=== PATIENT | female | born 2000 | race Two or more races ===

== ENCOUNTER 2021-06-19 21:21 | Observation (INO) | payer SELFPAY ==
[2021-06-19] MEDS ORDERED: IV RINGERS,LACTATED 1000ML 1,000 ML IV SCH (22:30)
[2021-06-19 22:40] LABS: BACTERIA,URINE FEW /HPF (0-FEW); BILIRUBIN,URINE NEGATIVE (NEG); CLARITY,URINE CLEAR; COLOR,URINE COLORLESS; NITRITE,URINE NEGATIVE (NEG); PROTEIN,URINE NEGATIVE (NEG-TRACE); RBC,URINE RARE /HPF (0-2); UROBILINOGEN,URINE 0.2 mg/dL (0.2 mg/dL)
[2021-06-19 22:41] LABS: BARBITURATES NEG (NEG); BENZODIAZEPINES NEG (NEG); CANNABINOIDS NEG (NEG); COCAINE NEG (NEG); METHADONE NEG (NEG); OPIATES NEG (NEG); PHENCYCLIDINE NEG (NEG)
[2021-06-19 22:47] LABS: AMPHETAMINE/METHAMPHETAMINE NEG (NEG)
== END 2021-06-20 01:29 | disposition home or self-care (01) ==
LOC: 3 SO LND 21:21
PROVIDERS: ADMIT Obstetrics & Gynecology; ATTEND Obstetrics & Gynecology
DX: O62.9 Abnormality of forces of labor, unspecified (principal); Z3A.39 39 weeks gestation of pregnancy
CPT/HCPCS: 80307; 81001; 87086; G0378; G0379

== ENCOUNTER 2021-07-10 07:27 | Inpatient (IN) | payer SELFPAY ==
[~2021-07-10] VITALS: Ht 157.5 cm; Wt 74.5 kg
[2021-07-10] MEDS ORDERED: BUTORPHANOL 2 MG/ML VIAL. IVP PRN ×2 (08:45)
[2021-07-10] MEDS ORDERED: OXYTOCIN 30 UNIT/500 ML PREMIX 500 ML IV PRN ×3 (08:45→14:45)
[2021-07-10] MEDS ORDERED: ACETAMINOPHEN 325 MG TABLET. PO PRN ×2 (08:45→14:45)
[2021-07-10] MEDS ORDERED: LIDOCAINE 1% PF 30 ML VIAL. INJ PRN (08:45)
[2021-07-10] MEDS ORDERED: 0.9 % SODIUM CHLORIDE 10 ML DISP.SYRIN. IV PRN ×2 (08:45→14:45)
[2021-07-10] MEDS ORDERED: TERBUTALINE 1 MG/ML VIAL. SQ PRN (08:45)
[2021-07-10] MEDS ORDERED: IV RINGERS,LACTATED 1000ML 1,000 ML IV PRN (08:45)
[2021-07-10 09:43] LABS: BASO # 0.1 x10^3/uL (0.0-0.2); BASO % 1 % (0-3); EOS % 0 % (0-3); HEMATOCRIT 35.5 % (36.0-47.0); HEMOGLOBIN 12.6 g/dL (12.0-15.5); LYMPH % 18 % (24-48); MEAN CORPUSCULAR HEMOGLOBIN 31 pg (25-35); MEAN CORPUSCULAR HGB CONC 36 g/dL (31-37); MEAN CORPUSCULAR VOLUME 88 fL (79-100); MONO # 0.7 x10^3/uL (0.0-1.1); MONO % 6 % (0-9); NEUT # 8.2 x10^3/uL (1.8-7.7); NEUT % 75 % (31-73); PLATELET COUNT 243 x10^3/uL (140-400); RED BLOOD COUNT 4.02 x10^6/uL (3.50-5.40); RED CELL DISTRIBUTION WIDTH 13.9 % (11.5-14.5); WHITE BLOOD COUNT 10.9 x10^3/uL (4.0-11.0)
[2021-07-10 10:30] VITALS: BP 110/70
--- NOTE | 2021-07-10 14:06 | PDOC1 ---
[facility] H&P Date of Admission: Date of Admission: Jul 10, 2021 at 07:27 History of Present Illness: EDC: 07/12/21 LMP: 10/05/20 20y @ 39.5 by L=20 presents to L&D with LOF. She was confirmed ruptured. The pt remained 1 cm so she was started on Pit for augmentation. PMH: Denies PSH: Appy 2014 Meds: PNV All: NKDA OBHx: G1 SH: no tob, no EtOH FH: noncontributory Medications: Meds: Current Medications Medications (Trade) Dose Ordered Sig/Filipe Route PRN Reason Start Time Stop Time Status Last Admin Dose Admin Ringer's Solution 1,000 ml @ 125 mls/hr Q8H PRN IV PER PROTOCOL 07/10/21 08:45 07/10/21 10:03 Butorphanol Tartrate (Stadol) 2 mg PRN Q1HR PRN IVP Severe labor pain 07/10/21 08:45 07/10/21 13:27 Oxytocin 500 ml @ 0 mls/hr CONT PRN IV SEE I/O RECORD 07/10/21 08:45 07/10/21 10:04 Allergies: Coded Allergies: No Known Drug Allergies (Unverified , 07/10/21) Physical Exam: Vital Signs: Vital Signs Date Time Temp Pulse Resp B/P (MAP) Pulse Ox O2 Delivery O2 Flow Rate FiO2 07/10/21 13:27 22 PE: GENERAL: No apparent distress. Alert and oriented. HEENT: Head normocephalic, atraumatic. NECK: Supple LUNGS: Clear to auscultation. HEART: RRR, S1, S2 present, pulses intact ABDOMEN: Soft, positive bowel sounds. EXTREMITIES: No cyanosis or edema. NEUROLOGIC: Normal speech, normal tone PSYCHIATRIC: Normal affect, normal mood. SKIN: No ulceration. FHT: 140's +acels/variable decels/mLTV [place]: 1-2 min SVE: 2-3/75/-3 Labs: Laboratory Tests Test 07/10/21 09:25 07/10/21 09:40 White Blood Count 10.9 x10^3/uL (4.0-11.0) Red Blood Count 4.02 x10^6/uL (3.50-5.40) Hemoglobin 12.6 g/dL (12.0-15.5) Hematocrit 35.5 % (36.0-47.0) L Mean Corpuscular Volume 88 fL (79-100) Mean Corpuscular Hemoglobin 31 pg (25-35) Mean Corpuscular Hemoglobin Concent 36 g/dL (31-37) Red Cell Distribution Width 13.9 % (11.5-14.5) Platelet Count 243 x10^3/uL (140-400) Neutrophils (%) (Auto) 75 % (31-73) H Lymphocytes (%) (Auto) 18 % (24-48) L Monocytes (%) (Auto) 6 % (0-9) Eosinophils (%) (Auto) 0 % (0-3) Basophils (%) (Auto) 1 % (0-3) Neutrophils # (Auto) 8.2 x10^3/uL (1.8-7.7) H Lymphocytes # (Auto) 2.0 x10^3/uL (1.0-4.8) Monocytes # (Auto) 0.7 x10^3/uL (0.0-1.1) Eosinophils # (Auto) 0.0 x10^3/uL (0.0-0.7) Basophils # (Auto) 0.1 x10^3/uL (0.0-0.2) Treponema pallidum Antibody Nonreactive (Nonreactive) SARS-CoV-2 Antigen (Rapid) Negative (NEGATIVE) Laboratory Tests 07/10/21 09:25 Laboratory Tests 07/10/21 09:25 Assessment & Plan: A/P 20y @ 39.4 by L=20 1.) SROM on Pit for augmentation 2.) Chl pos - WINTER neg 02/05/21 3.) Trey NI 4.) TDAP given 04/23/21 5.) Flu vaccine given 02/05/21 6.) Fetus cat I FHT 7.) GBS neg LYLY SCOTT MD Jul 10, 2021 14:06
--- NOTE | 2021-07-10 14:41 | PDOC4 ---
VAGINAL DELIVERY DATE DATE: 07/10/21 TIME: 14:40 TIME Patient delivered a viable male over intact perineum at 1428. Wt 6lb 13.9oz. Apgars 8/9. Placenta delivered spontaneously, intact with 3VC. No lacerations noted. Good hemostasis noted. 20 U of Pit given with IVF. EBL 100cc. WEIGHT Weight [ ] LYLY SCOTT MD Jul 10, 2021 14:41
[2021-07-10] MEDS ORDERED: TDaP (Adacel) per PROTOCOL. MC PRN (14:45)
[2021-07-10] MEDS ORDERED: MAG HYDROX/ALUMINUM HYD/SIMETH 30 ML ORAL.SUSP PO PRN (14:45)
[2021-07-10] MEDS ORDERED: diphenhydrAMINE HCL 25 MG CAPSULE PO PRN (14:45)
[2021-07-10] MEDS ORDERED: HYDROCORTISONE 1% TOPICAL OINTMENT 30GM TUBE. TP PRN (14:45)
[2021-07-10] MEDS ORDERED: SIMETHICONE 80 MG TAB.CHEW PO PRN (14:45)
[2021-07-10] MEDS ORDERED: MAGNESIUM HYDROXIDE 2,400 MG/30 ML ORAL.SUSP. PO PRN (14:45)
[2021-07-10] MEDS ORDERED: ZOLPIDEM 5 MG TABLET. PO PRN (14:45)
[2021-07-10] MEDS ORDERED: MMR per PROTOCOL. MC PRN (14:45)
[2021-07-10] MEDS ORDERED: PHENYLEPH/MINERAL OIL/PETROLAT RECTAL OINTMENT TUBE. RC PRN (14:45)
[2021-07-10] MEDS ORDERED: BENZOCAINE 20% TOPICAL AEROSOL SPRAY 57GM CAN. TP PRN (14:45)
[2021-07-10] MEDS ORDERED: oxyCODONE/APAP 5/325 1 TAB TABLET PO PRN (14:45)
[2021-07-10] MEDS: IBUPROFEN 400 MG TABLET. PO PRN (17:05)
[2021-07-10 17:45] VITALS: BP 117/67
[2021-07-10 18:44] VITALS: BP 133/75
[2021-07-10 20:54] VITALS: BP 110/70
[2021-07-11] VITALS (7 sets, daily range): BP systolic 102–122; BP diastolic 51–73
[2021-07-11] MEDS: IBUPROFEN 400 MG TABLET. PO PRN ×2 (06:04→17:13)
[2021-07-11] MEDS: FERROUS SULFATE 325 MG TABLET. PO SCH ×2 (08:00→16:07)
[2021-07-11 08:22] LABS: HEMATOCRIT 36.2 % (36.0-47.0); HEMOGLOBIN 12.5 g/dL (12.0-15.5); RED BLOOD COUNT 4.05 x10^6/uL (3.50-5.40); WHITE BLOOD COUNT 12.3 x10^3/uL (4.0-11.0)
[2021-07-11] MEDS: PRENATAL MULTIVITAMIN TABLET. PO SCH (10:45)
[2021-07-11] MEDS: DOCUSATE SODIUM 100 MG CAPSULE. PO PRN ×2 (10:45→17:13)
--- NOTE | 2021-07-11 12:02 | PDOC ---
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 Yuriy PO. Voiding. Minimal lochia. Objective: Vital Signs: Vital Signs Date Time Temp Pulse Resp B/P (MAP) Pulse Ox O2 Delivery O2 Flow Rate FiO2 07/10/21 10:30 98.7 79 20 110/70 (83) 98.7 07/10/21 17:45 Room Air Vital Signs Date Time Temp Pulse Resp B/P (MAP) Pulse Ox O2 Delivery O2 Flow Rate FiO2 07/11/21 08:09 98.5 66 16 106/65 (79) Room Air 98.5 Labs: Laboratory Tests Test 07/11/21 08:00 White Blood Count 12.3 x10^3/uL (4.0-11.0) H Red Blood Count 4.05 x10^6/uL (3.50-5.40) Hemoglobin 12.5 g/dL (12.0-15.5) Hematocrit 36.2 % (36.0-47.0) Mean Corpuscular Volume 89 fL (79-100) Mean Corpuscular Hemoglobin 31 pg (25-35) Mean Corpuscular Hemoglobin Concent 35 g/dL (31-37) Red Cell Distribution Width 14.0 % (11.5-14.5) Platelet Count 237 x10^3/uL (140-400) Laboratory Tests 07/11/21 08:00 Laboratory Tests 07/11/21 08:00 Physical Exam: GENERAL: No apparent distress. Alert and oriented. HEENT: Head normocephalic, atraumatic. NECK: Supple LUNGS: Clear to auscultation. HEART: RRR, S1, S2 present, pulses intact ABDOMEN: Soft, positive bowel sounds. EXTREMITIES: No cyanosis or edema. NEUROLOGIC: Normal speech, normal tone PSYCHIATRIC: Normal affect, normal mood. SKIN: No ulceration. FFNT below umb No C/C/E Assessment & Plan: A/P 20y PPD #1 s/p 1.) PP doing well 2.) Chl pos - WINTER neg 02/05/21 3.) Trey NI 4.) TDAP given 04/23/21 5.) Flu vaccine given 02/05/21 6.) Hgb 12.6 -> 12.5 7.) Cont PP LYLY Walker MD Jul 11, 2021 12:02
[2021-07-12 05:58] VITALS: BP 113/75
[2021-07-12] MEDS: PRENATAL MULTIVITAMIN TABLET. PO SCH (09:48)
[2021-07-12] MEDS: IBUPROFEN 400 MG TABLET. PO PRN (09:48)
[2021-07-12] MEDS: DOCUSATE SODIUM 100 MG CAPSULE. PO PRN (09:48)
[2021-07-12 09:49] VITALS: BP 111/71
[2021-07-12] MEDS ORDERED: IBUP-1060 PO (11:24)
[2021-07-12] MEDS ORDERED: DOCU-109 PO (11:24)
--- NOTE | 2021-07-12 11:27 | PDOC ---
ULTIMATE [employer] SCOREBOARD OPERATOR PROGRESS NOTE Date of Service: DATE: 07/12/21 TIME: 11:27 Subjective: Pt with good pain control. Yuriy PO. Voiding. Minimal lochia. Objective: Vital Signs: Vital Signs Date Time Temp Pulse Resp B/P (MAP) Pulse Ox O2 Delivery O2 Flow Rate FiO2 07/11/21 08:09 98.5 66 16 106/65 (79) Room Air 98.5 07/11/21 17:19 99 Vital Signs Date Time Temp Pulse Resp B/P (MAP) Pulse Ox O2 Delivery O2 Flow Rate FiO2 07/12/21 09:49 99.0 87 18 111/71 (84) 98 Room Air 99.0 Physical Exam: GENERAL: No apparent distress. Alert and oriented. HEENT: Head normocephalic, atraumatic. NECK: Supple LUNGS: Clear to auscultation. HEART: RRR, S1, S2 present, pulses intact ABDOMEN: Soft, positive bowel sounds. EXTREMITIES: No cyanosis or edema. NEUROLOGIC: Normal speech, normal tone PSYCHIATRIC: Normal affect, normal mood. SKIN: No ulceration. FFNT below umb No C/C/E Assessment & Plan: A/P 20y PPD #2 s/p 1.) PP doing well 2.) Chl pos - WINTER neg 02/05/21 3.) Trey NI 4.) TDAP given 04/23/21 5.) Flu vaccine given 02/05/21 6.) Hgb 12.6 -> 12.5 7.) D/c home LYLY SCOTT MD Jul 12, 2021 11:27
--- NOTE | 2021-07-12 11:47 | DS ---
DATE OF DISCHARGE: 07/12/2021 ADMISSION DIAGNOSES: 1. Intrauterine at 39 weeks and 5 days by last menstrual period equal to 20-week ultrasound. 2. Spontaneous rupture of membranes. 3. Chlamydia positive with negative treatment of cure. 4. Varicella nonimmune. 5. Status post Tdap. 6. Status post flu vaccine. 7. Group B Streptococcus negative. DISCHARGE DIAGNOSES: 1. Intrauterine at 39 weeks and 5 days by last menstrual period equal to 20-week ultrasound. 2. Spontaneous rupture of membranes. 3. Chlamydia positive with negative treatment of cure. 4. Varicella nonimmune. 5. Status post Tdap. 6. Status post flu vaccine. 7. Group B Streptococcus negative. PROCEDURE: Spontaneous vaginal delivery. BRIEF HOSPITAL COURSE: The patient is a 20-year-old 1, para 0 who presented to Labor and Delivery at 39 weeks and 5 days by LMP equal to 20-week ultrasound with leakage of fluid. The patient was confirmed ruptured. The patient was 1 cm, similar to what she was when she was seen in the office the prior day. The patient was started on Pitocin for augmentation. The patient ultimately delivered by vaginal delivery later that afternoon. See delivery note for full detail. By day #2, the patient was meeting all discharge criteria and subsequently discharged home. Of note, the patient's hemoglobin on admission was 12.6 and after delivery, was found to be 12.5. DISCHARGE INSTRUCTIONS: The patient was told not to lift anything greater than 20 pounds, have pelvic rest for 6 weeks. CALL IF: The patient was to call if she had fevers, chills, nausea, vomiting, abdominal pain or any additional questions or concerns. FOLLOWUP APPOINTMENT: The patient was to follow up on 08/24/2021 at 08:15 a.m. for a visit. DISCHARGE MEDICATIONS: The patient was given a prescription for Motrin 800 mg, 30 pills; Colace 100 mg, 30 pills. LEANNA/MGANUS DR: Ruben TID: [id number]
[2021-07-12 13:04] VITALS: BP 105/65
--- NOTE | 2021-07-12 13:49 | NUR ---
Discharge Note: JEYSON RENO3 SO LND Discharge instructions and discharge home medications reviewed with Patient and a copy given. All questions have been answered and understanding verbalized. The following instructions and handouts were given: [facility] Patient Discharge Instruction Sheet and Medication Schedule Discharge Instruction Post Patients Well Tank Setter - Depression and Baby Blues Care After Vaginal Delivery Docusate Sodium Ibuprofen Patient discharged to home with self-care via ambulation to private vehicle.
== END 2021-07-12 13:20 | disposition home or self-care (01) | DRG 807 ==
LOC: OBSVTOIN 07:27 → 3 SO LND 07:27
PROVIDERS: ADMIT Obstetrics & Gynecology; ATTEND Obstetrics & Gynecology
PROC: 10E0XZZ Delivery of Products of Conception, External Approach (ICD-10-PCS; principal; 2021-07-10)
DX: O98.82 Other maternal infectious and parasitic diseases complicating childbirth (principal); Z37.0 Single live birth; Z3A.39 39 weeks gestation of pregnancy; Z20.822 Contact with and (suspected) exposure to COVID-19; Z90.49 Acquired absence of other specified parts of digestive tract
CPT/HCPCS: 36415; 85025; 85027; 86592; 86850; 86900; 86901; 87426; J0595; J2590; J7120; U0003; U0005; G0378